=== PATIENT | male | born 1990 | race Caucasian/White ===

== ENCOUNTER → 2017-01-31 | Outpatient (CLI) | payer OTHER | LOC: COL.LAB 16:48 | DX: Z01.89 Encounter for other specified special examinations (principal) ==

== ENCOUNTER → 2017-02-11 | Outpatient (CLI) | payer OTHER ==
[2017-02-11 13:29] LABS: PH 5 (5-8); SQUAMOUS EPITHELIAL None Seen /hpf; URINE APPEARANCE Clear; URINE BACTERIA None Seen /hpf; URINE BILIRUBIN Negative (NEGATIVE); URINE BLOOD Negative (NEGATIVE); URINE COLOR Straw; URINE GLUCOSE Negative (NEGATIVE); URINE KETONE Negative (NEGATIVE); URINE RBC 0-2 /hpf; URINE UROBILINOGEN Negative (NEGATIVE); URINE WBC 0-2 /hpf
[2017-02-11 13:33] LABS: ALBUMIN 4.3 gm/dL (3.5-5.0); CREATININE, serum 1.32 mg/dL (0.66-1.25); PHOSPHOROUS 3.7 mg/dL (2.5-4.5); POTASSIUM 5.1 mmol/L (3.4-5.0)
[2017-02-11 13:37] LABS: BASO % 0.5 % (0.0-2.0); EOS # 0.2 (0.0-0.7); EOS % 3.9 % (0-4.0); GRAN # 3.3 (1.4-6.5); LYMPH # 1.5 (1.2-3.4); LYMPH % 25.8 % (20.0-51.0); MEAN CELL VOLUME 83 fl (80.0-100.0); MEAN CORPUSCULAR HGB CONC 34 g/dl (33.0-37.0); MONO # 0.7 (0.1-0.6); MONO % 11.6 % (1.7-9.3); PLATELET COUNT 229 K/mm3 (130-400); RED BLOOD COUNT 3.68 M/mm3 (4.20-5.60); REDCELL DISTRIBUTION WIDTH-CV 12.3 % (11.5-14.5); WHITE BLOOD COUNT 5.6 K/mm3 (4.8-10.8)
[2017-02-11 13:47] LABS: HEMATOCRIT 30.5 % (42.0-52.0); HEMOGLOBIN 10.5 g/dl (13.5-18.0); MEAN CORPUSCULAR HEMOGLOBIN 29 pg (27.0-31.0)
== END ==
LOC: COL.LAB 02-06 16:41
PROVIDERS: Internal Medicine Nephrology
DX: Z94.0 Kidney transplant status (principal)

== ENCOUNTER → 2017-07-25 | Outpatient (CLI) | payer OTHER ==
[2017-07-25 17:38] LABS: BASO % 0.3 % (0.0-2.0); EOS # 0.5 (0.0-0.7); EOS % 7.9 % (0-4.0); GRAN # 3.5 (1.4-6.5); GRAN % 52.8 % (42.2-75.2); LYMPH # 1.7 (1.2-3.4); LYMPH % 25.8 % (20.0-51.0); MEAN CELL VOLUME 83 fl (80.0-100.0); MEAN CORPUSCULAR HGB CONC 35 g/dl (33.0-37.0); MEAN PLATELET VOLUME 8.6 fl (7.4-10.4); MONO # 0.9 (0.1-0.6); MONO % 12.9 % (1.7-9.3); PLATELET COUNT 189 K/mm3 (130-400); RED BLOOD COUNT 3.44 M/mm3 (4.20-5.60); WHITE BLOOD COUNT 6.6 K/mm3 (4.8-10.8)
[2017-07-25 17:39] LABS: HEMATOCRIT 28.5 % (42.0-52.0); HEMOGLOBIN 10.1 g/dl (13.5-18.0); MEAN CORPUSCULAR HEMOGLOBIN 29 pg (27.0-31.0)
[2017-07-25 17:43] LABS: CREATININE, serum 1.34 mg/dL (0.66-1.25); POTASSIUM 4.2 mmol/L (3.4-5.0)
[2017-07-25 23:44] LABS: ALBUMIN/CREATININE RATIO URINE 2456.1 mg/g (0.0-29.0); URINE MICROALBUMIN 162.1 mg/dL (0.0-1.7)
== END ==
LOC: COL.LAB 16:43
PROVIDERS: Internal Medicine
DX: D64.9 Anemia, unspecified (principal); I10 Essential (primary) hypertension; Z94.0 Kidney transplant status

== ENCOUNTER → 2017-07-31 | Outpatient (CLI) | payer OTHER ==
[2017-07-31 17:39] LABS: URINE PROTEIN:CREAT RATIO 5.58 (0.00-0.14)
[2017-08-01 00:52] LABS: ALBUMIN/CREATININE RATIO URINE 4798.9 mg/g (0.0-29.0); URINE MICROALBUMIN 446.3 mg/dL (0.0-1.7)
== END ==
LOC: COL.LAB 16:41
PROVIDERS: Internal Medicine
DX: D64.9 Anemia, unspecified (principal); I10 Essential (primary) hypertension; Z94.0 Kidney transplant status

== ENCOUNTER → 2017-09-10 | Outpatient (CLI) | payer OTHER ==
[2017-09-10 17:05] LABS: MEAN CELL VOLUME 87 fl (80.0-100.0); MEAN CORPUSCULAR HGB CONC 33 g/dl (33.0-37.0); MEAN PLATELET VOLUME 8.7 fl (7.4-10.4); PLATELET COUNT 249 K/mm3 (130-400); RED BLOOD COUNT 3.56 M/mm3 (4.20-5.60); REDCELL DISTRIBUTION WIDTH-CV 12.2 % (11.5-14.5)
[2017-09-10 17:14] LABS: HEMATOCRIT 30.9 % (42.0-52.0); HEMOGLOBIN 10.3 g/dl (13.5-18.0); MEAN CORPUSCULAR HEMOGLOBIN 29 pg (27.0-31.0)
[2017-09-10 17:15] LABS: CALCIUM 9.9 mg/dL (8.4-10.2); CREATININE, serum 1.52 mg/dL (0.66-1.25); POTASSIUM 4.2 mmol/L (3.4-5.0)
[2017-09-10 23:51] LABS: URINE MICROALBUMIN 52.6 mg/dL (0.0-1.7)
== END ==
LOC: COL.LAB 16:40
PROVIDERS: Internal Medicine
DX: I12.9 Hypertensive chronic kidney disease with stage 1 through stage 4 chronic kidney disease, or unspecified chronic kidney disease (principal); R80.8 Other proteinuria; N18.9 Chronic kidney disease, unspecified; Z94.0 Kidney transplant status

== ENCOUNTER → 2017-09-23 | Outpatient (CLI) | payer OTHER ==
[2017-09-23 17:07] LABS: BASO % 0.2 % (0.0-2.0); EOS # 0.1 (0.0-0.7); EOS % 1.1 % (0-4.0); GRAN # 7.6 (1.4-6.5); GRAN % 63.6 % (42.2-75.2); LYMPH # 2.9 (1.2-3.4); LYMPH % 24.5 % (20.0-51.0); MEAN CELL VOLUME 86 fl (80.0-100.0); MEAN CORPUSCULAR HGB CONC 34 g/dl (33.0-37.0); MEAN PLATELET VOLUME 8.7 fl (7.4-10.4); MONO # 1.2 (0.1-0.6); MONO % 10.1 % (1.7-9.3); PLATELET COUNT 211 K/mm3 (130-400); RED BLOOD COUNT 3.75 M/mm3 (4.20-5.60)
[2017-09-23 17:09] LABS: HEMATOCRIT 32.2 % (42.0-52.0); HEMOGLOBIN 10.9 g/dl (13.5-18.0); MEAN CORPUSCULAR HEMOGLOBIN 29 pg (27.0-31.0)
[2017-09-23 17:15] LABS: CALCIUM 9.5 mg/dL (8.4-10.2); POTASSIUM 3.9 mmol/L (3.4-5.0)
[2017-09-23 17:26] LABS: CREATININE, serum 1.63 mg/dL (0.66-1.25)
[2017-09-23 23:50] LABS: URINE MICROALBUMIN 30.8 mg/dL (0.0-1.7)
== END ==
LOC: COL.LAB 16:40
PROVIDERS: Internal Medicine
DX: D64.9 Anemia, unspecified (principal); R80.8 Other proteinuria; Z94.0 Kidney transplant status

== ENCOUNTER → 2017-10-15 | Outpatient (CLI) | payer OTHER ==
[2017-10-15 16:58] LABS: BASO % 0.2 % (0.0-2.0); EOS # 0.1 (0.0-0.7); EOS % 0.8 % (0-4.0); GRAN # 7.9 (1.4-6.5); GRAN % 66.5 % (42.2-75.2); LYMPH # 2.8 (1.2-3.4); LYMPH % 23.3 % (20.0-51.0); MEAN CELL VOLUME 86 fl (80.0-100.0); MEAN CORPUSCULAR HGB CONC 34 g/dl (33.0-37.0); MEAN PLATELET VOLUME 8.3 fl (7.4-10.4); MONO % 8.7 % (1.7-9.3); PLATELET COUNT 191 K/mm3 (130-400); RED BLOOD COUNT 3.66 M/mm3 (4.20-5.60)
[2017-10-15 17:11] LABS: CALCIUM 9.7 mg/dL (8.4-10.2); CREATININE, serum 1.52 mg/dL (0.66-1.25); POTASSIUM 4.3 mmol/L (3.4-5.0)
[2017-10-15 17:12] LABS: HEMATOCRIT 31.5 % (42.0-52.0); HEMOGLOBIN 10.7 g/dl (13.5-18.0); MEAN CORPUSCULAR HEMOGLOBIN 29 pg (27.0-31.0)
[2017-10-15 23:42] LABS: URINE MICROALBUMIN 20.5 mg/dL (0.0-1.7)
== END ==
LOC: COL.LAB 16:37
PROVIDERS: Internal Medicine
DX: D64.9 Anemia, unspecified (principal); R80.8 Other proteinuria; Z94.0 Kidney transplant status

== ENCOUNTER → 2017-12-13 | Outpatient (CLI) | payer OTHER ==
[2017-12-13 17:14] LABS: BASO % 0.5 % (0.0-2.0); EOS # 0.2 (0.0-0.7); GRAN # 3.4 (1.4-6.5); GRAN % 56.6 % (42.2-75.2); LYMPH # 1.6 (1.2-3.4); LYMPH % 26.5 % (20.0-51.0); MEAN CELL VOLUME 85 fl (80.0-100.0); MEAN CORPUSCULAR HGB CONC 35 g/dl (33.0-37.0); MEAN PLATELET VOLUME 8.5 fl (7.4-10.4); MONO # 0.7 (0.1-0.6); MONO % 12.2 % (1.7-9.3); PLATELET COUNT 218 K/mm3 (130-400); RED BLOOD COUNT 3.12 M/mm3 (4.20-5.60); REDCELL DISTRIBUTION WIDTH-CV 12.2 % (11.5-14.5)
[2017-12-13 17:15] LABS: CALCIUM 9.1 mg/dL (8.4-10.2); CREATININE, serum 1.75 mg/dL (0.66-1.25); HEMATOCRIT 26.5 % (42.0-52.0); HEMOGLOBIN 9.2 g/dl (13.5-18.0); MEAN CORPUSCULAR HEMOGLOBIN 29 pg (27.0-31.0); POTASSIUM 4.8 mmol/L (3.4-5.0)
[2017-12-14 03:22] LABS: URINE MICROALBUMIN 54.1 mg/dL (0.0-1.7)
== END ==
LOC: COL.LAB 16:27
PROVIDERS: Internal Medicine
DX: D64.9 Anemia, unspecified (principal); R80.8 Other proteinuria; Z94.0 Kidney transplant status

== ENCOUNTER → 2018-02-20 | Outpatient (CLI) | payer OTHER ==
[2018-02-20 17:39] LABS: BASO % 0.7 % (0.0-2.0); EOS # 0.9 (0.0-0.7); EOS % 15.7 % (0-4.0); GRAN # 2.6 (1.4-6.5); GRAN % 43.9 % (42.2-75.2); HEMOGLOBIN 10.1 g/dl (13.5-18.0); LYMPH # 1.8 (1.2-3.4); MEAN CELL VOLUME 84 fl (80.0-100.0); MEAN CORPUSCULAR HEMOGLOBIN 29 pg (27.0-31.0); MEAN CORPUSCULAR HGB CONC 34 g/dl (33.0-37.0); MEAN PLATELET VOLUME 9.2 fl (7.4-10.4); MONO # 0.6 (0.1-0.6); MONO % 9.5 % (1.7-9.3); PLATELET COUNT 268 K/mm3 (130-400); REDCELL DISTRIBUTION WIDTH-CV 11.5 % (11.5-14.5)
[2018-02-20 17:47] LABS: MUCOUS Present /lpf; PH 6 (5-8); SQUAMOUS EPITHELIAL None Seen /hpf; URINE APPEARANCE Clear; URINE BACTERIA None Seen /hpf; URINE BILIRUBIN Negative (NEGATIVE); URINE BLOOD Negative (NEGATIVE); URINE COLOR Straw; URINE GLUCOSE Negative (NEGATIVE); URINE KETONE Negative (NEGATIVE); URINE LEUKOCYTE ESTERASE Negative (NEGATIVE); URINE NITRATE Negative (NEGATIVE); URINE PROTEIN(semi-quant) 2+ (NEGATIVE); URINE RBC 0-2 /hpf; URINE UROBILINOGEN Negative (NEGATIVE)
[2018-02-20 17:47] LABS: ALBUMIN 3.9 gm/dL (3.5-5.0); BILIRUBIN,TOTAL 0.3 mg/dL (0.0-1.0); CALCIUM 9.2 mg/dL (8.4-10.2); CHOLESTEROL RISK RATIO 5.2; CREATININE, serum 1.51 mg/dL (0.66-1.25); MAGNESIUM 1.5 mg/dL (1.6-2.3); PHOSPHOROUS 4.5 mg/dL (2.5-4.5); POTASSIUM 4.8 mmol/L (3.4-5.0); TOTAL PROTEIN 6.9 gm/dL (6.4-8.2)
[2018-02-20 17:52] LABS: HEMATOCRIT 29.5 % (42.0-52.0)
[2018-02-20 17:55] LABS: COLLECTION METHOD CLEAN CATCH
[2018-02-20 18:05] LABS: BILIRUBIN UNCONJUGATED 0.2 mg/dL (0.0-1.1); BILIRUBIN,DIRECT 0.1 mg/dL (0.0-0.4)
[2018-02-20 18:33] LABS: URINE PROTEIN:CREAT RATIO 2.7 (0.00-0.14)
[2018-02-21 14:51] LABS: PTH,INTACT 208.7 pg/mL (6.6-88.9)
[2018-02-22 01:26] LABS: PROGRAF 3.5 ng/mL (5.0-15.0)
== END ==
LOC: COL.LAB 16:36
PROVIDERS: Pediatrics
DX: Z48.22 Encounter for aftercare following kidney transplant (principal); Z79.899 Other long term (current) drug therapy

== ENCOUNTER 2018-09-29 12:46 | Emergency (ER) | payer BC ==
[~2018-09-29] VITALS: Ht 177.8 cm; Wt 79.5 kg
[2018-09-29 12:51] VITALS: BP 125/69; TEMP 99.6
[2018-09-29] MEDS ORDERED: CELLCEPT 5500 MG/TAB PO (12:59)
[2018-09-29] MEDS ORDERED: PROGRAF 0.5MG0.5 MG PO (13:00)
[2018-09-29] MEDS ORDERED: VASOTEC 10M10 MG/TAB PO (13:00)
[2018-09-29] MEDS ORDERED: NORMODYNE300 MG PO (13:01)
[2018-09-29 13:57] LABS: COLLECTION METHOD CLEAN CATCH
[2018-09-29 14:04] LABS: PH 5 (5-8); SQUAMOUS EPITHELIAL None Seen /hpf; URINE APPEARANCE Clear; URINE BACTERIA None Seen /hpf; URINE BILIRUBIN Negative (NEGATIVE); URINE BLOOD Negative (NEGATIVE); URINE COLOR Yellow; URINE GLUCOSE Negative (NEGATIVE); URINE KETONE Negative (NEGATIVE); URINE LEUKOCYTE ESTERASE Negative (NEGATIVE); URINE NITRATE Negative (NEGATIVE); URINE PROTEIN(semi-quant) 1+ (NEGATIVE); URINE RBC 0-2 /hpf; URINE UROBILINOGEN Negative (NEGATIVE)
[2018-09-29 14:11] LABS: ALBUMIN 4.5 gm/dL (3.5-5.0); BASO % 0.2 % (0.0-2.0); BILIRUBIN,TOTAL 0.4 mg/dL (0.0-1.0); CALCIUM 9.8 mg/dL (8.4-10.2); CREATININE, serum 1.74 mg/dL (0.66-1.25); EOS # 0.3 (0.0-0.7); EOS % 3.8 % (0-4.0); GRAN # 4.3 (1.4-6.5); GRAN % 65.8 % (42.2-75.2); HEMOGLOBIN 10.4 g/dl (13.5-18.0); LYMPH # 1.3 (1.2-3.4); LYMPH % 19.4 % (20.0-51.0); MEAN CELL VOLUME 83 fl (80.0-100.0); MEAN CORPUSCULAR HEMOGLOBIN 29 pg (27.0-31.0); MEAN CORPUSCULAR HGB CONC 34 g/dl (33.0-37.0); MEAN PLATELET VOLUME 8.9 fl (7.4-10.4); MONO # 0.7 (0.1-0.6); MONO % 10.5 % (1.7-9.3); PLATELET COUNT 210 K/mm3 (130-400); POTASSIUM 4.6 mmol/L (3.4-5.0); RED BLOOD COUNT 3.65 M/mm3 (4.20-5.60); REDCELL DISTRIBUTION WIDTH-CV 11.9 % (11.5-14.5); TOTAL PROTEIN 8.2 gm/dL (6.4-8.2)
[2018-09-29 14:15] LABS: HEMATOCRIT 30.4 % (42.0-52.0)
[2018-09-29] MEDS ORDERED: TAMIFLU 75MG75 MG PO (14:20)
[2018-09-29 14:31] VITALS: PULSE 91
== END 2018-09-29 14:31 | disposition home or self-care (01) ==
LOC: COL.ER 12:46
PROVIDERS: Physician Assistant
DX: J10.1 Influenza due to other identified influenza virus with other respiratory manifestations (principal)

== ENCOUNTER → 2018-10-08 | Outpatient (CLI) | payer BC ==
[~2018-10-08] MED LIST: CELLCEPT 5500 MG/TAB PO; NORMODYNE300 MG PO; PROGRAF 0.5MG0.5 MG PO; TAMIFLU 75MG75 MG PO; VASOTEC 10M10 MG/TAB PO
[2018-10-08 19:03] LABS: COLLECTION METHOD CLEAN CATCH
[2018-10-08 19:04] LABS: BASO % 0.4 % (0.0-2.0); EOS # 0.5 (0.0-0.7); EOS % 5.6 % (0-4.0); GRAN # 5.2 (1.4-6.5); GRAN % 57.6 % (42.2-75.2); LYMPH # 2.5 (1.2-3.4); LYMPH % 27.6 % (20.0-51.0); MEAN CELL VOLUME 84 fl (80.0-100.0); MEAN CORPUSCULAR HGB CONC 34 g/dl (33.0-37.0); MEAN PLATELET VOLUME 8.8 fl (7.4-10.4); MONO # 0.8 (0.1-0.6); MONO % 8.4 % (1.7-9.3); PLATELET COUNT 380 K/mm3 (130-400); RED BLOOD COUNT 3.34 M/mm3 (4.20-5.60); REDCELL DISTRIBUTION WIDTH-CV 11.7 % (11.5-14.5)
[2018-10-08 19:06] LABS: HEMOGLOBIN 9.5 g/dl (13.5-18.0); MEAN CORPUSCULAR HEMOGLOBIN 28 pg (27.0-31.0)
[2018-10-08 19:10] LABS: PH 5 (5-8); SQUAMOUS EPITHELIAL None Seen /hpf; URINE APPEARANCE Clear; URINE BACTERIA None Seen /hpf; URINE BILIRUBIN Negative (NEGATIVE); URINE BLOOD 1+ (NEGATIVE); URINE COLOR Straw; URINE GLUCOSE Negative (NEGATIVE); URINE KETONE Negative (NEGATIVE); URINE LEUKOCYTE ESTERASE Negative (NEGATIVE); URINE NITRATE Negative (NEGATIVE); URINE PROTEIN(semi-quant) Negative (NEGATIVE); URINE RBC 0-2 /hpf; URINE UROBILINOGEN Negative (NEGATIVE)
[2018-10-08 19:18] LABS: BILIRUBIN UNCONJUGATED 0.2 mg/dL (0.0-1.1); BILIRUBIN,TOTAL 0.2 mg/dL (0.0-1.0); TOTAL PROTEIN 8.1 gm/dL (6.4-8.2)
[2018-10-08 19:20] LABS: CALCIUM 9.8 mg/dL (8.4-10.2); CHOLESTEROL RISK RATIO 4.7; CREATININE, serum 1.38 mg/dL (0.66-1.25); MAGNESIUM 1.4 mg/dL (1.6-2.3); POTASSIUM 4.8 mmol/L (3.4-5.0)
[2018-10-08 19:27] LABS: ALBUMIN 4.4 gm/dL (3.5-5.0)
[2018-10-08 19:28] LABS: URINE PROTEIN:CREAT RATIO 0.48 (0.00-0.14)
[2018-10-09 14:15] LABS: PROGRAF 6.2 ng/mL (5.0-15.0)
== END ==
LOC: COL.LAB 18:18
DX: Z94.0 Kidney transplant status (principal)

== ENCOUNTER 2020-04-14 09:37 | Emergency (ER) | payer BC ==
[~2020-04-14] VITALS: Ht 180.3 cm; Wt 79.5 kg
[2020-04-14 09:48] VITALS: TEMP 97.5
[2020-04-14] MEDS ORDERED: FERROUS SU325 MG/TAB PO (10:00)
[2020-04-14 10:34] LABS: BASO % 0.8 % (0.0-2.0); EOS # 0.3 (0.0-0.7); EOS % 6.3 % (0-4.0); GRAN # 2.8 (1.4-6.5); GRAN % 55.7 % (42.2-75.2); HEMATOCRIT 30.1 % (42.0-52.0); HEMOGLOBIN 10.4 g/dl (13.5-18.0); LYMPH # 1.4 (1.2-3.4); LYMPH % 28.3 % (20.0-51.0); MEAN CELL VOLUME 83 fl (80.0-100.0); MEAN CORPUSCULAR HEMOGLOBIN 29 pg (27.0-31.0); MEAN CORPUSCULAR HGB CONC 35 g/dl (33.0-37.0); MEAN PLATELET VOLUME 9.1 fl (7.4-10.4); MONO # 0.4 (0.1-0.6); MONO % 8.5 % (1.7-9.3); PLATELET COUNT 241 K/mm3 (130-400); RED BLOOD COUNT 3.62 M/mm3 (4.20-5.60); REDCELL DISTRIBUTION WIDTH-CV 11.9 % (11.5-14.5)
[2020-04-14 10:46] LABS: ALANINE AMINOTRANSFERASE 44 U/L (4-49); ALBUMIN 4.5 gm/dL (3.5-5.0); ALKALINE PHOSPHATASE 75 U/L (50-136); ANION GAP 8 mmol/L (7-16); AST,SGOT 32 U/L (15-37); BILIRUBIN,TOTAL 0.5 mg/dL (0.0-1.0); BLOOD UREA NITROGEN 18 mg/dL (9-20); CALCIUM 9.9 mg/dL (8.4-10.2); CARBON DIOXIDE 26 mmol/L (22-30); CHLORIDE 101 mmol/L (98-107); CREATININE, serum 1.18 (0.66-1.25); GLUCOSE 95 mg/dL (74-106); SODIUM 135 mmol/L (137-145); TOTAL PROTEIN 7.9 gm/dL (6.4-8.2)
[2020-04-14 11:04] LABS: TROPONIN-I < 0.012 ng/mL (0.000-0.035)
[2020-04-14 11:21] VITALS: BP 136/88; PULSE 70
== END 2020-04-14 11:25 | disposition home or self-care (01) ==
LOC: COL.ER 09:37
PROVIDERS: Physician Assistant
DX: R07.89 Other chest pain (principal); I12.9 Hypertensive chronic kidney disease with stage 1 through stage 4 chronic kidney disease, or unspecified chronic kidney disease; Q87.81 Alport syndrome; Z94.0 Kidney transplant status; Z20.828 Contact with and (suspected) exposure to other viral communicable diseases